=== PATIENT | male | born 1950 | race Caucasian/White ===

== ENCOUNTER 2023-02-21 08:00 | Outpatient (CLI) | payer OTHER ==
--- NOTE | 2023-02-21 16:44 | XRAY Report ---
PROCEDURE: Foot 3 View RT INDICATIONS: RIGHT FOOT PAIN TECHNIQUE: 3 views of the foot were acquired. COMPARISON: X-ray foot 02/14/2023 FINDINGS: Bones: Minimal increased diastases of fifth metatarsal base fracture. Pes planus is present. Signifi cant narrowing and joint deformity are noted at the first MTP joint, unchanged. Soft tissues: No suspicious soft tissue calcifications or masses. IMPRESSION: Minimal diastases of fifth metatarsal base fracture compared to prior exam. Reviewed by: Jennifer Vasquez MD on 02/21/2023 4:42 PM PDT Approved by: Jennifer Vasquez MD on 02/21/2023 4:42 PM PDT Station ID: [id number]
== END 2023-02-21 23:59 | disposition home or self-care (01) ==
LOC: DI.WOS 08:00
PROVIDERS: ATTEND Orthopaedic Surgery
DX: S92.351D Displaced fracture of fifth metatarsal bone, right foot, subsequent encounter for fracture with routine healing (principal)

== ENCOUNTER 2023-03-29 10:00 | Outpatient (CLI) | payer OTHER ==
--- NOTE | 2023-03-29 17:19 | XRAY Report ---
PROCEDURE: Foot 3 View RT INDICATIONS: RIGHT 5TH MT FRACTURE TECHNIQUE: 3 views of the foot were acquired. COMPARISON: 02/21/2023 and a 1422. FINDINGS: Bones: Post fixation changes are again seen in medial and lateral malleoli unchanged from prior stud y. There is interval further healing at fifth metatarsal base fracture site with near complete bony u nion. No new fracture or dislocation is seen. Osteoarthritic changes are noted throughout right foot. Pes planus with weightbearing is noted. Plantar and dorsal calcaneal enthesophytes are seen. No ruben picious bony lesions. Soft tissues: No suspicious soft tissue calcifications or masses. IMPRESSION: Interval further healing at fifth metatarsal base fracture site with near complete bony union. Right foot osteoarthritis. No new fracture or dislocation. Pes planus with weightbearing. Reviewed by: Juan Amor MD on 03/29/2023 5:18 PM PDT Approved by: Juan Amor MD on 03/29/2023 5:18 PM PDT Station ID: [id number]
== END 2023-03-29 23:59 | disposition home or self-care (01) ==
LOC: DI.WOS 10:00
PROVIDERS: ATTEND Orthopaedic Surgery
DX: S92.351D Displaced fracture of fifth metatarsal bone, right foot, subsequent encounter for fracture with routine healing (principal); M19.071 Primary osteoarthritis, right ankle and foot; M21.41 Flat foot [pes planus] (acquired), right foot